=== PATIENT | female | born 1960 | race Caucasian/White ===

== ENCOUNTER → 2017-04-20 | Outpatient (CLI) | payer OTHER ==
--- NOTE | ~2017-04-20 | US5 ---
[facility] A Service of [facility] RADIOLOGY TEXT RESULTS PATIENT: STEPHEN DOWD LOCATION: [facility] : 62 UNIT #: [id number] AGE: [address]: Vel Mayen MD SEX: F ORDER DR: [id number] [facility] [address] [place], [place] [address] [id number] O MR#: [id number] #: [id number] NAME: STEPHEN DOWD : 1960 SEX: F STUDY DATE/TIME: 04/20/2017 10:45 UNIT: [facility] ROOM: STUDY DESCRIPTION: US Abdominal Complete Attending Physician: Vel Mayen M.D. Ordering Physician: Vel Mayen M.D. Primary Care Physician: Vel Mayen M.D. MEDICAL IMAGING REPORT This report is preliminary unless electronic signature is present EXAM Ultrasound abdomen, 04/20. INDICATION Left upper quadrant pain with constipation over the last 3-4 months. FINDINGS Sonographic evaluation was performed of the abdomen in multiple planes. No comparison. The pancreas is normal. The liver parenchyma is homogeneous and normal. No focal liver mass. Main portal vein patent by Doppler. IVC patent by Doppler. Proximal aorta measures up to 2.2 cm. Mid aorta measures up to 3.0 cm. The distal aorta measures about 2.5 cm. There is diffuse atherosclerotic disease within the aorta. Spleen size is normal with a [id number] length of 7.1 cm. There is some scarring in the left kidney. Both kidneys are otherwise normal and nonobstructed. The gallbladder is normal. No gallstones are identified, and there is no gallbladder wall thickening. IMPRESSION 1. Atherosclerotic disease with dilatation of the abdominal aorta measuring up to 3.0 cm in diameter. 2. The gallbladder is normal. 3. There is some mild scarring in the left kidney. Kidneys are otherwise normal and nonobstructed. Dictated by... Crow Denney Jr., M.D. THIS IS AN ELECTRONICALLY VERIFIED REPORT Crow Denney Jr., M.D. at 04/21/2017 5:53 AM IVAN/di [facility]. [facility] A Service of [facility] RADIOLOGY TEXT RESULTS PATIENT: STEPHEN DOWD LOCATION: [facility] : 62 UNIT #: [id number] AGE: [address]: Vel Mayen MD SEX: F ORDER DR: TD: 04/20/2017 18:23 JOB #: [id number] MEDICAL IMAGING REPORT Page 1 of 1 COPY
== END | disposition home or self-care (01) ==
LOC: CGUS 10:30 → CWCC 10:30
DX: R10.30 Lower abdominal pain, unspecified (principal); I70.0 Atherosclerosis of aorta; I77.811 Abdominal aortic ectasia; N28.89 Other specified disorders of kidney and ureter
CPT/HCPCS: 76700